=== PATIENT | female | born 1955 | race African-American/Black ===

== ENCOUNTER 2017-10-29 10:36 | Outpatient (CLI) | payer MEDICARE, MEDICAID ==
--- NOTE | 2017-10-30 11:51 | MMO ---
BILATERAL DIGITAL SCREENING MAMMOGRAMS: Date: 10/29/17 This patient's mammogram was interpreted with the assistance of computer-aided detection. Comparison made with exams of 10/24/16 and 01/07/14. FINDINGS: There are scattered fibroglandular densities with benign calcifications. No suspicious masses or calc ifications are identified. IMPRESSION: BIRADS 2: Benign Finding(s) Return to annual mammographic screening. POS: [facility]
== END 2017-10-29 10:37 | disposition home or self-care (01) ==
LOC: SCSMAMMO 10:36
PROVIDERS: ATTEND Family Medicine
DX: Z12.31 Encounter for screening mammogram for malignant neoplasm of breast (principal)
CPT/HCPCS: 77067

== ENCOUNTER 2019-12-22 11:32 | Emergency (ER) | payer MEDICARE, OTHER ==
--- NOTE | 2019-12-22 12:35 | RAD ---
RADIOGRAPH RIGHT HAND 3VIEWS: DATE: 12/22/2019 HISTORY: 64-year-old female with right hand swelling FINDINGS: There is no evidence of fracture or dislocation. There is no evidence of periostitis, permeative lesi on, osteolytic lesion, or osteoblastic lesion. There is moderate bony hypertrophy and irregularity of the articular surface, and chronic soft tissue, at the first MCP joint. Mild to moderate such DJD at first IP joint. The rest of the joint spaces are maintained without erosions or significant osteophytes. IMPRESSION: 1. 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 2. Diffuse osteopenia.. 3. Otherwise negative.
== END 2019-12-22 13:44 | disposition home or self-care (01) ==
LOC: ERS 11:32
DX: M19.041 Primary osteoarthritis, right hand (principal); F31.9 Bipolar disorder, unspecified; I10 Essential (primary) hypertension; E11.9 Type 2 diabetes mellitus without complications; F17.210 Nicotine dependence, cigarettes, uncomplicated; Z79.899 Other long term (current) drug therapy

== ENCOUNTER 2021-02-17 08:26 | Emergency (ER) | payer MEDICARE, OTHER | END 2021-02-17 11:03 | disposition home or self-care (01) | LOC: ERS 08:26 | DX: M10.9 Gout, unspecified (principal); I10 Essential (primary) hypertension; E11.9 Type 2 diabetes mellitus without complications ==

== ENCOUNTER 2021-06-27 13:08 | Outpatient (CLI) | payer MEDICARE, OTHER | END 2021-06-27 13:09 | disposition home or self-care (01) | LOC: BICMAMMO 13:08 | PROVIDERS: ATTEND Family Medicine | DX: Z12.31 Encounter for screening mammogram for malignant neoplasm of breast (principal) | CPT/HCPCS: 77063; 77067 ==

== ENCOUNTER 2022-06-23 07:51 | Emergency (ER) | payer MEDICARE, OTHER ==
[2022-06-23] MEDS ORDERED: Acetaminophen 500 MG TAB ONE (08:11)
== END 2022-06-23 09:08 | disposition home or self-care (01) ==
LOC: ERS 07:51
DX: S92.352A Displaced fracture of fifth metatarsal bone, left foot, initial encounter for closed fracture (principal); I10 Essential (primary) hypertension; E78.5 Hyperlipidemia, unspecified; E11.9 Type 2 diabetes mellitus without complications; J44.9 Chronic obstructive pulmonary disease, unspecified; F17.200 Nicotine dependence, unspecified, uncomplicated; W19.XXXA Unspecified fall, initial encounter; Y93.01 Activity, walking, marching and hiking

== ENCOUNTER 2022-08-08 19:07 | Emergency (ER) | payer OTHER ==
[2022-08-08] MEDS ORDERED: Ipratropium/Albuterol 3 ML NEB ONE (20:44)
[2022-08-08] MEDS ORDERED: Gentamicin Ophth Soln 0.3% 5 ml Bottle ONE (20:47)
[2022-08-08 21:58] LABS: SARS-CoV-2 NAA Rapid Test Not Detected (NotDetected)
== END 2022-08-08 22:00 | disposition home or self-care (01) ==
LOC: ERS 19:07
DX: H10.9 Unspecified conjunctivitis (principal); J02.9 Acute pharyngitis, unspecified; J20.9 Acute bronchitis, unspecified; I10 Essential (primary) hypertension; E11.9 Type 2 diabetes mellitus without complications; Z20.822 Contact with and (suspected) exposure to COVID-19; Z79.899 Other long term (current) drug therapy
CPT/HCPCS: 0240U; 71045; J7620

== ENCOUNTER 2022-10-13 13:19 | Emergency (ER) | payer OTHER ==
[2022-10-13] MEDS ORDERED: Ketorolac Tromethamine 30 MG/ML VIAL ONE ×2 (15:42)
== END 2022-10-13 16:30 | disposition home or self-care (01) ==
LOC: ERS 13:19
DX: M10.9 Gout, unspecified (principal); I10 Essential (primary) hypertension; E11.9 Type 2 diabetes mellitus without complications
CPT/HCPCS: 96372; 99283; J1885

== ENCOUNTER 2023-03-13 10:05 | Outpatient (CLI) | payer OTHER | END 2023-03-13 10:06 | disposition home or self-care (01) | LOC: BICMAMMO 10:05 | PROVIDERS: ATTEND Family Medicine | DX: Z12.31 Encounter for screening mammogram for malignant neoplasm of breast (principal); Z13.820 Encounter for screening for osteoporosis; M25.561 Pain in right knee; Z91.81 History of falling; Z78.0 Asymptomatic menopausal state | CPT/HCPCS: 77063; 77067; 77080 ==

== ENCOUNTER 2023-08-03 12:34 | Observation (INO) | payer OTHER, MEDICAID ==
[2023-08-03 14:22] LABS: #Basophils 0.1 thou/uL (0.0-0.2); #Eosinphils 0.2 thou/uL (0.0-0.7); #Monocytes 0.6 thou/uL (0.11-0.59); #Neutrophils 5.4 thou/uL (1.40-6.50); %Basophils 0.7 % (0.0-1.0); %Eosinophils 2.4 % (0.0-10.0); %Lymphocytes 36.1 % (21.0-51.0); %Monocytes 5.7 % (0.0-10.0); %Neutrophils 54.9 % (42.0-75.0); Hematocrit 42.2 % (36.0-47.0); Hemoglobin 13.5 g/dL (12.0-16.0); Mean Corpuscular Hemoglobin 27.3 pg (27.0-31.0); Mean Corpuscular Volume 85.4 fl (78.0-98.0); Mean Platelet Volume 9.1 fL (7.4-10.4); Platelet Count 304 10x3/uL (130-400); RBC Distribution Width 15.6 % (11.5-14.5); Red Blood Cell (RBC) Count 4.94 mill/uL (4.20-5.40); White Blood Cell (WBC) Count 9.8 10x3/uL (4.8-10.8)
[2023-08-03 14:44] LABS: ALT (SGPT) 15 U/L (8-55); AST (SGOT) 15 U/L (5-34); Alkaline Phosphatase 99 U/L (40-110); Anion Gap 13 mmol/L (10-20); BUN (Urea Nitrogen) 39 mg/dL (9.8-20.1); Bilirubin, Total 0.6 mg/dL (0.2-1.2); Calc. Creatinine Clearance 0 mL/min (70-130); Calcium 9.6 mg/dL (7.8-10.44); Carbon Dioxide 27 mmol/L (23-31); Chloride 105 mmol/L (98-107); Estimated GFR 27; Globulin 4.4 g/dL (2.4-3.5); Glucose 86 mg/dL (80-115); Magnesium 2.1 mg/dL (1.6-2.6); Potassium 4.2 mmol/L (3.5-5.1); Protein, Total 8.4 g/dL (5.8-8.1); Sodium 141 mmol/L (136-145)
[2023-08-03] MEDS ORDERED: Acetaminophen 325 MG TAB PO PRN (15:40)
[2023-08-03] MEDS ORDERED: Ondansetron PF 4 MG/2 ML Vial IVP PRN (15:40)
[2023-08-03] MEDS ORDERED: Enoxaparin 40 MG (0.4 mL) SYRINGE SC SCH (17:30)
[2023-08-03 17:47] VITALS: BMI 40.0
[2023-08-03] MEDS: Ipratropium/Albuterol 3 ML NEB NEB SCH ×2 (19:22→22:32)
[2023-08-04] MEDS: Ipratropium/Albuterol 3 ML NEB NEB SCH ×4 (03:09→15:01)
[2023-08-04] MEDS ORDERED: Guaifenesin DM 100-10/5 ML UDCUP PO PRN (06:04)
[2023-08-04] MEDS ORDERED: Albuterol 200 PUFF (6.7GM INHALER) INH PRN (08:20)
[2023-08-04] MEDS ORDERED: Non-Formulary Item 1 EACH (Losartan Potassium [Losartan Potassium] 50 MG Tablet) PO SCH (08:20)
[2023-08-04] MEDS ORDERED: Losartan 25 MG TAB PO SCH (09:00)
[2023-08-04] MEDS ORDERED: Aspirin 81 mg Enteric Coated Tablet PO SCH (09:00)
[2023-08-04] MEDS ORDERED: busPIRone HCl 5 MG TAB PO SCH (09:00)
[2023-08-04] MEDS ORDERED: Enoxaparin 40 MG (0.4 mL) SYRINGE SC SCH (09:00)
[2023-08-04] MEDS ORDERED: Non-Formulary Item 1 EACH (Budesonide-Formoterol [Symbicort 160-4.5] 160 MG/4.5 MG Aer) INH SCH (09:00)
[2023-08-04] MEDS ORDERED: Atorvastatin Calcium 40 MG TAB PO SCH (09:00)
[2023-08-04 12:32] VITALS: BP 124/58; TEMP 98.5
[2023-08-04] MEDS ORDERED: Mometasone 200 MCG/Formoterol 5 MCG 120 PUFF INHALER INH SCH (18:30)
[2023-08-04] MEDS ORDERED: Atorvastatin Calcium 20 MG TAB PO SCH (21:00)
== END 2023-08-04 15:39 | disposition home or self-care (01) ==
LOC: ERS 12:34 → 2SW 15:40
PROVIDERS: ADMIT Internal Medicine; ATTEND Internal Medicine
DX: R55 Syncope and collapse (principal); I10 Essential (primary) hypertension; I08.1 Rheumatic disorders of both mitral and tricuspid valves; J44.89 Other specified chronic obstructive pulmonary disease; F17.200 Nicotine dependence, unspecified, uncomplicated; F41.9 Anxiety disorder, unspecified; F32.A Depression, unspecified; Z91.040 Latex allergy status; Z88.8 Allergy status to other drugs, medicaments and biological substances; Z79.899 Other long term (current) drug therapy; Z79.82 Long term (current) use of aspirin; Z86.73 Personal history of transient ischemic attack (TIA), and cerebral infarction without residual deficits; Z90.49 Acquired absence of other specified parts of digestive tract; Z90.710 Acquired absence of both cervix and uterus
CPT/HCPCS: 70450; 71045; 72125; 73502; 78451; 80053; 82962; 83735; 84484; 85025; 85379; 93005; 93306; 94640 ×3; 99285; A9540; 36415; 36416; 96372; G0378; J1650; J7620

== ENCOUNTER 2025-03-09 09:00 | Outpatient (CLI) | payer OTHER | END 2025-03-09 09:01 | disposition home or self-care (01) | LOC: BICMAMMO 09:00 | PROVIDERS: ATTEND Family Medicine | DX: Z12.31 Encounter for screening mammogram for malignant neoplasm of breast (principal) | CPT/HCPCS: 77063; 77067 ==